=== PATIENT | male | born 1975 | race Caucasian/White ===

== ENCOUNTER 2017-11-24 12:40 | Emergency (ER) | payer OTHER, BC ==
[~2017-11-24] VITALS: Ht 190.5 cm; Wt 99.4 kg
[~2017-11-24 12:40] MED LIST: NO HOME MEDS
[2017-11-24] MEDS ORDERED: MOTRIN800 MG PO (14:34)
[2017-11-24 14:58] VITALS: BP 149/95
== END 2017-11-24 14:58 | disposition home or self-care (01) ==
LOC: EME 12:40
DX: M25.511 Pain in right shoulder (principal)
CPT/HCPCS: 99281; 99283